=== PATIENT | female | born 1970 | race Caucasian/White ===

== ENCOUNTER → 2021-06-25 | Outpatient (REF) ==
--- NOTE | 2021-06-25 21:44 | REP ---
INDICATION: BACK PAIN COMPARISON: None. TECHNIQUE: AP, lateral, coned-down views of the lumbar spine. FINDINGS: Three views of the lumbosacral spine demonstrate satisfactory alignment and lordosis without acute fracture / compression injury or subluxation. No significant spondylosis noted. IMPRESSION: 1. No acute fracture / compression injury or subluxation. 2. Relatively age-appropriate examination. No significant spondylosis noted. <Electronically signed by Ross Gamino > 06/25/21 [id number]
== END ==
LOC: M RAD 17:11
PROVIDERS: ATTEND Internal Medicine
DX: M54.5 Low back pain (principal)